=== PATIENT | female | born 1970 | race African-American/Black ===

== ENCOUNTER → 2016-10-07 | Day surgery (SDC) | payer OTHER ==
[~2016-10-07] MED LIST: BUPIVACAINE HCL PF 0.5% 10 ML VIAL ONE; DONNTAB12 PO; KETOROLAC TROMETHAMINE 30 MG/ML (IVP) VIAL IV PUSH ONE; LACTATED RINGER'S 1000 ML INJ 1,000 ML ONE; MIDAZOLAM HCL 2 MG/2 ML VIAL ONE; OMEP20CA5 PO; ONDANSETRON HCL 4 MG/2 ML VIAL IV PUSH ONE; PROPOFOL 200 MG/20 ML AMP IV ONE; SUCR1TAB6 PO; Z.0.NO CURRENT MEDS; ceFAZolin 2 GM PREMIX 50 ML ONE; oxyCODONE/ACETAMINOPHEN 5 MG/325 MG TAB ONE
--- NOTE | 2016-10-07 14:39 | TN ---
cc: ZAC VAUGHN M.D. DATE OF SURGERY 10/07/16 PRINCIPAL DIAGNOSIS Radial scar of the right breast with two right chest wall moles. POSTOPERATIVE DIAGNOSIS Radial scar of the right breast with two right chest wall moles. PROCEDURE PERFORMED Excision of right shoulder and right chest wall mole and right breast needle-localized lumpectomy. SURGEON Mireille Vaughn MD ANESTHESIA General via LMA device. INDICATION The patient is a 46-year-old -[place] female with longstanding moles in the right chest wall and right shoulder which have not changed. She desired excision and also had an area of density in the right breast requiring MR guided biopsy which demonstrated radial scar with ductal hyperplasia. This was questionably concordant with imaging findings and needle localized excision was recommended. She now presents for the procedure. FINDINGS AT THE TIME OF SURGERY Benign appearing moles on the right shoulder and right chest wall were identified. Specimen mammogram did demonstrate an intact wire and the biopsy clip and lesion were present in the lumpectomy specimen. PROCEDURE PERFORMED After informed consent was obtained and site verification was performed, the patient was brought to the radiology suite where she underwent needle localization of her prior right breast biopsy site at 11 o'clock 3 cm from the nipple. She was then brought to the major operating room where she underwent general anesthesia via an LMA device. She was given a single dose of IV Ancef and sequential compression hose were placed. The right breast and chest wall were prepped and draped in sterile fashion up to the level of the shoulder. 1 cc of 0.5% Marcaine plain was used to anesthetize the skin around her right shoulder mole which was approximately 4 mm in size. An excision of the mole was then performed into the dermal tissue and it was sent for permanent pathologic evaluation. This wound was closed with a single 4-0 Monocryl subcuticular suture. Attention was then turned to the right breast and a periareolar skin incision at 11 o'clock was anesthetized. Sharp and electrocautery dissection was performed until the wire entry point through the skin was identified and secured with a hemostat. The wire was cut off at the skin with pin cutters and a 2-0 silk transfixion suture was placed at the wire entry point into the breast tissue. Sharp and electrocautery dissection was performed beyond the wire and the specimen was oriented with two sutures anteriorly, one short suture superiorly, and one long suture laterally. Specimen mammogram findings were as noted and the lesion was sent for permanent pathologic evaluation. Hemostasis was easily obtained with electrocautery and the wound was closed using interrupted 3-0 Vicryl subcutaneous sutures and a 4-0 Monocryl subcuticular suture. A right breast mole close to the chest wall was then infiltrated with 0.5% Marcaine with plain and this lesion was quite superficial and was just amputated at the level of the dermis and sent for permanent pathologic evaluation. Steri-Strip closure was performed. Sterile dressings and Steri-Strips were applied to all wounds and the patient was extubated and brought to recovery room in good condition. All sponge and needle counts were correct at the conclusion of the case. MD TIMUR Marie/BEATRIS /1:22 PM /2:23 PM
== END | disposition home or self-care (01) ==
LOC: ESDC 08:43
PROVIDERS: ATTEND Surgery
DX: N60.91 Unspecified benign mammary dysplasia of right breast (principal); D22.61 Melanocytic nevi of right upper limb, including shoulder; D22.5 Melanocytic nevi of trunk
CPT/HCPCS: 00400; 11400; 19125; 88305; 88307; J0690; J1885; J2250; J2405; J3010; J7120